=== PATIENT | female | born 1935 | race Caucasian/White ===

== ENCOUNTER 2017-12-10 02:34 | Inpatient (IN) | payer OTHER ==
[~2017-12-10] VITALS: Ht 165.1 cm; Wt 85.9 kg
[~2017-12-10 02:34] MED LIST: AMBIEN5 MG PO; ATIVAN0.5 M1 PO; CARAFATE1 GM PO; CELEXA10 MG PO; CLONIDINE HCL0.1 MG PO; ENSURE PO; LISINOPRIL10 MG PO; MOM PO; MP PO; NORCO1 TA2 PO; OMEPRAZOLE DR20 M1 PO; REMERON30 MG PO; RESTORIL15 MG PO; SEROQUEL100 MG PO; TYLENOL EXTRA500 M2 PO; XANAX0.5 MG PO; ZYPREXA5 MG PO; [UNRECOGNIZED DRUG - OTHER] PO
[2017-12-10 02:49] VITALS: Ht 165.1 cm; Wt 85.9 kg
[2017-12-10 04:23] LABS: CALCIUM 8.4 mg/dL (8.5-10.1); CARBON DIOXIDE 26.9 mmol/L (21-32); CHLORIDE SERUM 102 mmol/L (98-107); CREATININE SERUM 0.8 mg/dL (0.6-1.0); GLUCOSE SERUM 117 mg/dL (74-106); POTASSIUM SERUM 4.1 mmol/L (3.5-5.1); SODIUM SERUM 137 mmol/L (136-145)
[2017-12-10 04:27] LABS: ALBUMIN 3.5 g/dL (3.4-5.0); ALKALINE PHOSPHATASE 113 U/L (46-116); ALT/SGPT 22 U/L (14-59); AST/SGOT 16 U/L (15-37); BILIRUBIN TOTAL 0.3 mg/dL (0.20-1.00); LIPASE 136 IU/L (73-393); TOTAL PROTEIN, SERUM 7.4 g/dL (6.4-8.2)
[2017-12-10 04:28] LABS: BASOPHIL % 0.6 % (0-2); PLATELET COUNT 331 x10^3mcL (130-400); RED CELL DISTRIBUTION WIDTH 12.3 % (11.5-14.5)
[2017-12-10] MEDS ORDERED: NOR5 PO (05:14)
[2017-12-10] MEDS ORDERED: ABILIFY5 M1 PO (05:15)
[2017-12-10] MEDS ORDERED: CLONAZEPAM0.5 MG PO (05:16)
[2017-12-10] MEDS ORDERED: REMERON30 MG PO (05:17)
[2017-12-10] MEDS ORDERED: SEROQUEL400 M1 PO (05:17)
[2017-12-10 05:39] LABS: CHOLESTEROL/HDL RATIO 3.7; MAGNESIUM 2.2 mg/dL (1.8-2.4); PHOSPHOROUS 3.8 mg/dL (2.5-4.9)
[2017-12-10 05:44] LABS: T3 TOTAL 0.91 ng/mL
[2017-12-10 05:45] LABS: FREE T4 0.94 ng/dL (0.76-1.46); FREE THYROXINE INDEX 2.2 ug/dL (1.4-4.5)
[2017-12-10 06:50] VITALS: BP 151/57
[2017-12-10 06:53] LABS: microscopic required? YES; urine erythrocyte 1+ (NEGATIVE)
[2017-12-10 07:50] LABS: AMPHETAMINE QUAL UR NONE DETECTED (See below)
[2017-12-10 07:54] VITALS: BP 151/57
[2017-12-10 17:23] VITALS: BP 141/73
[2017-12-10 19:20] VITALS: BP 150/75
[2017-12-11 04:58] VITALS: BP 136/62
[2017-12-11 06:22] LABS: BASOPHIL % 0.6 % (0-2); PLATELET COUNT 336 x10^3mcL (130-400); RED CELL DISTRIBUTION WIDTH 12.8 % (11.5-14.5)
[2017-12-11 06:27] LABS: CALCIUM 8.8 mg/dL (8.5-10.1); CARBON DIOXIDE 25.3 mmol/L (21-32); CHLORIDE SERUM 109 mmol/L (98-107); CREATININE SERUM 0.7 mg/dL (0.6-1.0); GLUCOSE SERUM 104 mg/dL (74-106); MAGNESIUM 2.7 mg/dL (1.8-2.4); POTASSIUM SERUM 4.7 mmol/L (3.5-5.1); SODIUM SERUM 141 mmol/L (136-145)
[2017-12-11 09:07] VITALS: BP 146/43
[2017-12-11 17:01] VITALS: BP 110/47
[2017-12-11 19:15] VITALS: BP 144/57
[2017-12-12 05:56] VITALS: BP 126/57
[2017-12-12 06:27] LABS: CALCIUM 8.6 mg/dL (8.5-10.1); CARBON DIOXIDE 25.7 mmol/L (21-32); CHLORIDE SERUM 106 mmol/L (98-107); CREATININE SERUM 0.8 mg/dL (0.6-1.0); GLUCOSE SERUM 104 mg/dL (74-106); MAGNESIUM 1.9 mg/dL (1.8-2.4); PHOSPHOROUS 2.3 mg/dL (2.5-4.9); POTASSIUM SERUM 4.3 mmol/L (3.5-5.1); SODIUM SERUM 142 mmol/L (136-145)
[2017-12-12 07:01] LABS: PLATELET COUNT 327 x10^3mcL (130-400); RED CELL DISTRIBUTION WIDTH 12.8 % (11.5-14.5)
[2017-12-12 10:27] LABS: ATYPICAL LYMPH 2 %; BAND NEUTROPHIL 0 % (0-10); BASOPHIL 0 % (0-2); MONOCYTE 7 % (0-7); SEGMENTED NEUTROPHILS 68 % (37-75)
[2017-12-12 10:29] LABS: PLATELET MORPHOLOGY PLATELETS NORMAL; rbc morphology (normal/abnorm) ABNORMAL (NORMAL)
[2017-12-12] MEDS ORDERED: LEXAPRO10 MG PO (14:28)
[2017-12-12] MEDS ORDERED: TRAZODONE50 M1 PO (14:29)
[2017-12-12 16:44] VITALS: BP 136/52
[2017-12-12 21:01] VITALS: BP 149/60
[2017-12-13 06:07] VITALS: BP 148/66
[2017-12-13 06:14] LABS: BASOPHIL % 0.7 % (0-2); PLATELET COUNT 310 x10^3mcL (130-400); RED CELL DISTRIBUTION WIDTH 13.2 % (11.5-14.5)
[2017-12-13 06:36] LABS: CALCIUM 8.8 mg/dL (8.5-10.1); CARBON DIOXIDE 25.8 mmol/L (21-32); CHLORIDE SERUM 108 mmol/L (98-107); CREATININE SERUM 0.8 mg/dL (0.6-1.0); GLUCOSE SERUM 106 mg/dL (74-106); MAGNESIUM 1.8 mg/dL (1.8-2.4); PHOSPHOROUS 4.1 mg/dL (2.5-4.9); SODIUM SERUM 144 mmol/L (136-145)
[2017-12-13 08:07] VITALS: BP 148/50
[2017-12-13 18:23] VITALS: BP 121/56
[2017-12-13 20:54] VITALS: BP 129/49
[2017-12-14 05:05] VITALS: BP 154/63
[2017-12-14 06:36] LABS: CALCIUM 8.8 mg/dL (8.5-10.1); CARBON DIOXIDE 27.3 mmol/L (21-32); CHLORIDE SERUM 106 mmol/L (98-107); GLUCOSE SERUM 101 mg/dL (74-106); MAGNESIUM 1.8 mg/dL (1.8-2.4); PHOSPHOROUS 4.2 mg/dL (2.5-4.9); POTASSIUM SERUM 4.2 mmol/L (3.5-5.1); SODIUM SERUM 141 mmol/L (136-145)
[2017-12-14 07:22] LABS: BASOPHIL % 0.7 % (0-2); PLATELET COUNT 317 x10^3mcL (130-400); RED CELL DISTRIBUTION WIDTH 12.9 % (11.5-14.5)
[2017-12-14 09:18] VITALS: BP 136/58
[2017-12-14] MEDS ORDERED: CLONAZEPAM0.5 MG PO (15:43)
[2017-12-14] MEDS ORDERED: REMERON30 MG PO (15:54)
[2017-12-14] MEDS ORDERED: SEROQUEL400 M1 PO (15:55)
[2017-12-14 16:45] VITALS: BP 116/49
[2017-12-14] MEDS ORDERED: LEVOFLOXACIN500 M1 PO (17:42)
[2017-12-14] MEDS ORDERED: MIRALAX17 GM/Dose PO (17:47)
[2017-12-14] MEDS ORDERED: MOT600 PO (17:50)
[2017-12-14 18:06] VITALS: BP 116/49
[2017-12-14 20:00] VITALS: BP 128/65
== END 2017-12-14 20:22 | disposition home or self-care (01) | DRG 391 ==
LOC: ED 02:34 → MU 04:50
PROVIDERS: Emergency Medicine; Internal Medicine
DX: K57.30 Diverticulosis of large intestine without perforation or abscess without bleeding (principal); N17.0 Acute kidney failure with tubular necrosis; K56.7 Ileus, unspecified; N39.0 Urinary tract infection, site not specified; F32.9 Major depressive disorder, single episode, unspecified; K59.00 Constipation, unspecified; F41.1 Generalized anxiety disorder; Z68.31 Body mass index [BMI] 31.0-31.9, adult
CPT/HCPCS: 83880; 84439; 97110-GP; 97116-GP; J1200; J1610; J1885; J1956; J2250; J2270; J2310; J2405; J2765; J3010; J3490; J7030; Q0092; Q0162; Q9967